=== PATIENT | female | born 1940 | race Caucasian/White ===

== ENCOUNTER → 2020-01-02 10:16 | Outpatient (CLI) | payer MEDICARE, SELFPAY ==
--- NOTE | 2020-01-02 | DI.NM.S_ITS ---
PROCEDURE: NM BONE SCAN WHOLE BODY RADIOPHARMACEUTICAL: 20.1 mCi Tc-99m MDP IV. INDICATIONS: Pain in left hip TECHNIQUE: Delayed whole-body scintigrams were obtained approximately 3-4 hours after intravenous injection of radiotracer. Anterior and posterior views were acquired from vertex to feet. Additional left and right oblique views of the pelvis and proximal femurs were obtained. COMPARISON: None. 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 There are expected postsurgical changes. No scintigraphic findings to suggest hip prostheses loosening or infection. No lesions are identified in skull, sternum, clavicles, scapulae, ribs, bony pelvis, and visualized shafts of the long bones. There is low level increased uptake in cervical, thoracic and lumbar spine with distribution indistinguishable from degenerative disc and facet disease; early metastasis to spine could be obscured by degenerative changes. There are foci of increased periarticular activity involving shoulders, wrists, hands, SI joints, knees, ankles and feet, compatible with degenerative/arthritic changes. More intense uptake in the midfoot could be secondary to trauma. IMPRESSION: 1. Bilateral hip arthroplasties. There is expected postsurgical changes. No scintigraphic findings to suggest prosthesis loosening or infection. 2. Degenerative changes in multiple peripheral joints. 3. Uptake in the left midfoot is more intense, which could be related to trauma such as healing fracture. Recommend radiographic correlation. Dictated by: Shawn Puckett M.D. on 01/02/2020 at 18:08 Approved by: Shawn Puckett M.D. on 01/02/2020 at 18:12
== END ==
PROVIDERS: PCP Family Medicine; Referring Provider Orthopaedic Surgery; Visit Provider Orthopaedic Surgery
DX: M25.552 Pain in left hip (principal); Z96.643 Presence of artificial hip joint, bilateral
CPT/HCPCS: 78306; A9503

== ENCOUNTER → 2020-10-03 09:30 | Outpatient (CLI) | payer MEDICARE, SELFPAY ==
--- NOTE | 2020-10-03 09:31 | DI.US.S_ITS ---
PROCEDURE: US PELVIC COMPLETE INDICATIONS: POST MENOPAUSAL BLEEDING TECHNIQUE: Real-time scanning was performed of the pelvic organs, with image documentation. Additional endovaginal scanning was necessary due to incomplete visualization of the adnexal and endometrial structures by transabdominal scanning. COMPARISON: [facility] Outside Film, CT, CT ABDOMEN PELVIS WITHOUT CONTRAST, 02/03/2015, 17:45. FINDINGS: Uterus: Uterus is normal in size at 3.8 x 2.3 x 3.9 cm. The endometrium measures 11 mm in combined thickness. There is an echogenic focus along the endometrial stripe that measures up to 1.5 cm. Ovaries: The right ovary is not seen. The left ovary is potentially seen measuring 13 x 18 x 7 mm. No adnexal masses are seen on either side. Other: No pathologic free abdominal or pelvic fluid. IMPRESSION: Abnormally thickened endometrial stripe, with a potential mass versus polyp also seen along the endometrial stripe. Concern is raised for endometrial neoplasm. Recommend correlation with endometrial histology, as clinically appropriate. Dictated by: Will Shannon M.D. on 10/03/2020 at 10:33 Approved by: Will Shannon M.D. on 10/03/2020 at 10:42
== END ==
PROVIDERS: PCP Internal Medicine; Referring Provider Specialist; Visit Provider Specialist
DX: N95.0 Postmenopausal bleeding (principal); R93.89 Abnormal findings on diagnostic imaging of other specified body structures
CPT/HCPCS: 76830; 76856

== ENCOUNTER → 2020-11-06 09:46 | Outpatient (CLI) | payer MEDICARE, SELFPAY ==
[2020-11-06 10:49] LABS: COVID19 -Nasal RAPID Negative (Negative)
== END ==
PROVIDERS: PCP Internal Medicine; Visit Provider Specialist
DX: Z01.812 Encounter for preprocedural laboratory examination (principal); Z20.822 Contact with and (suspected) exposure to COVID-19
CPT/HCPCS: 87635

== ENCOUNTER 2020-11-07 09:22 | Day surgery (SDC) | payer MEDICARE, SELFPAY ==
[2020-10-31 14:57] VITALS: BMI 26.1
[2020-11-07] VITALS (8 sets, daily range): BP systolic 128–173; BP diastolic 71–88; PULSE 51–59; RESP 12–18; TEMP 36.1–36.6; O2SAT 95–99; BMI 26.1
--- NOTE | 2020-11-07 | PATH_ITS ---
[facility] Accession Number: [id number] . 01 Material submitted: . PART A: endocervix - ENDOCERVICAL CURETTINGS PART B: endometrium - ENDOMETRIAL CURETTINGS . 02 Diagnosis: A. Endocervical Curettings: Metaplastic squamous mucosa with reactive features; negative for squamous dysplasia or malignancy. Endocervical tissue fragments; negative for glandular dysplasia or malignancy. Scant, detached fragments of atypical glandular epithelium, morphologically similar to the endometrial adenocarcinoma present in part B. . B. Endometrial Curettings: Endometrial adenocarcinoma, endometrioid pattern. FIGO grade 1 (of 3). [facility] 11/11/2020 1714 Local . 02 Comment: As part of routine supplier quality, this case was also reviewed by Dr. Urbina, who agrees with the interpretation. . Results discussed with Dr. Jose Chinchilla [place], on 11-11-20 at approximately 4:58 p.m. . 02 Electronically signed: . Natalie Gilmore MD, Pathologist NPI- [id number] . 01 Gross description: . A. The specimen is received in formalin, labeled endocervical curettings, and consists of multiple burton-pink fragments of soft tissue admixed with mucus and clotted blood measuring 2.5 x 2.0 x 0.4 cm in aggregate. The specimen is filtered and entirely submitted in cassette A1. B. The specimen is received in formalin, labeled endometrial curettings, and consists of multiple burton-pink fragments of soft tissue measuring 2.0 x 1.0 x 0.3 cm in aggregate. The specimen is filtered and entirely submitted in cassette B1. ([id number]) /FRR 11/08/2020 1403 Local . 02 Pathologist provided ICD-10: C54.1, N95.0 . 02 CPT . 722130, 211403 Performed at: 01 [facility] [address] [address], [place], [place] [id number] MD Fernando Mane MD Phone: [phone] Performed at: [id number] [place], [place] [id number] MD Lois Urbina MD Phone: [phone]
--- NOTE | 2020-11-07 09:15 | SUR.PREOP ---
pt has not yet arrived and will attempt to call her.
--- NOTE | 2020-11-07 09:18 | SUR.PREOP ---
Attempted to call x 2 and no answer.
[2020-11-07] MEDS: LACTATED RINGERS 1,000 ML 42 ML IV (09:32)
--- NOTE | 2020-11-07 09:59 | PM.PREOP ---
Pre-operative Note COVID-19 COVID-19 status: Negative Result date/Date tested (Pos, Neg/Pending): 11/06/20 Interval Note History & Physical reviewed/Exam performed by Physician: Yes Changes to H&P: No
--- NOTE | 2020-11-07 10:28 | SUR.OPER ---
Lithotomy on padded OR bed, head on pillow, arms secured on padded arm boards at <90 degrees abduction. Legs secured in padded yellow fins stirrups.
--- NOTE | 2020-11-07 10:49 | PM.OP.1 ---
Operative Date/Time/Diagnoses Date of procedure: 11/07/20 Time of procedure: 10:49 Pre-op diagnosis: Thickened endometrium on ultrasound with postmenopausal bleeding Post-op diagnosis: same Procedure & Clinicians Procedure: Hysteroscopy with fractional D&C Same procedure as scheduled: Yes Indications: Postmenopausal bleeding and thickened endometrium on ultrasound Surgeon: Marielle Leon Click Yes if Unassisted: Yes Anesthesia Type: General Operative Notes Findings: Approximately 3/4 of the endometrium covered with fluffy tissue consistent with carcinoma Closure Type: not applicable Specimen(s): other (Fractional D and C) Estimated Blood Loss (mL): 2 Procedure in detail: The patient was brought to the operating room where she underwent general anesthesia. She was placed in low stirrups She was prepped and draped in usual sterile fashion with pulsatile stockings in place and functional, warming in place. Her bladder was drained with in and out catheter. A single-tooth tenaculum was placed on the anterior lip of the cervix and the uterus dilated to #8 Hegar dilator. The hysteroscope was placed into the uterus with a sorbitol solution running and under constant suction. The endocervical curettage was performed. A endometrial curettage was performed. The endocervical curettage and the endometrial curettage was sent to pathology separately. The patient went to recovery room in good condition counts of instruments and sponges were correct. There was less than 300 cc of fluid used throughout the case. Complications: none Post-operative Condition: stable Disposition: same day surgery Plan for aftercare: Treatment and follow-up based on biopsy results.
--- NOTE | 2020-11-07 10:58 | SUR.PHASEI ---
1044-peripad minimum serosanguinous drainage
[2020-11-07] MEDS: ACETAMINOPHEN 325 MG TABLET 650 MG PO (11:20)
--- NOTE | 2020-11-07 11:40 | SUR.PHASEII ---
Called pt's ride and he is not answering. Pt was told she has probable cancer by Dr. Leon. pt is talking and waiting on to call back. RN has attempted to call x [address] Leon. tried once.
--- NOTE | 2020-11-07 12:14 | SUR.PHASEII ---
pt awaiting to arrive. Pt awaiting tylenol to kick in . Pt sitting on stretcher reading. No complaints voiced. pt had drink and snack.
--- NOTE | 2020-11-07 12:18 | SUR.PHASEII ---
pt's has arrived and pt getting dressed and will discharge her with her . Pt denies nausea and dizziness.
== END 2020-11-07 12:26 | disposition home or self-care (01) ==
PROVIDERS: PCP Internal Medicine; Referring Provider Specialist; Visit Provider Specialist
PROC: 0UDB8ZZ Extraction of Endometrium, Via Natural or Artificial Opening Endoscopic (ICD-10-PCS; CPT 58558; principal; 2020-11-07 10:15)
DX: C54.1 Malignant neoplasm of endometrium (principal)
CPT/HCPCS: 58558; J2405; J2704; J3010

== ENCOUNTER → 2020-12-13 10:17 | Outpatient (CLI) | payer MEDICARE, SELFPAY ==
[2020-12-13 12:01] LABS: COVID-19 CEPHEID PCR (VTM/NP) Negative (Negative)
== END ==
PROVIDERS: PCP Internal Medicine; Referring Provider Physician Assistant; Visit Provider Physician Assistant
DX: Z20.822 Contact with and (suspected) exposure to COVID-19 (principal)
CPT/HCPCS: C9803; U0003

== ENCOUNTER → 2023-05-31 12:02 | Outpatient (CLI) | payer MEDICARE, SELFPAY ==
--- NOTE | 2023-05-31 12:04 | DI.MRI.S_ITS ---
PROCEDURE: MR ANGIO HEAD WO CON INDICATIONS: family hx of ischemic disease TECHNIQUE: Noncontrast axial 3-D [id number] MR angiogram, with 3-dimensional maximum intensity projection (MIP) reformats of the internal carotid arteries and posterior circulation then performed. COMPARISON: None. FINDINGS: Image quality: Excellent. Anterior circulation: Intracranial internal carotid arteries demonstrate normal size and intraluminal flow signal. The flow within the paired anterior cerebral arteries is normal and symmetric. The flow within the middle cerebral arteries is normal and symmetric. The anterior communicating artery is seen. No stenoses, occlusions, or aneurysms. Posterior circulation: Visualized portions of the vertebral arteries demonstrate normal caliber, and join to form a normal appearing basilar artery. The flow within the posterior cerebral arteries is normal and symmetric. No stenoses, occlusions, or aneurysms. IMPRESSION: No hemodynamically significant stenosis, large vessel occlusion, aneurysm or AVM. Dictated by: Chet Rosenberg M.D. on 05/31/2023 at 14:26 Approved by: Chet Rosenberg M.D. on 05/31/2023 at 14:29
--- NOTE | 2023-05-31 12:06 | DI.MRI.S_ITS ---
PROCEDURE: MR HEAD/BRAIN WO CON INDICATIONS: family history of ischemic disease TECHNIQUE: Non-contrast axial T1 spin echo, axial T2 fast spin echo, sagittal and axial FLAIR, coronal T2 fast spin echo, axial gradient echo, axial diffusion and ADC through the brain. COMPARISON: None. FINDINGS: Image quality: Artifact limits evaluation of the lower cerebellum and brainstem. CSF spaces: Ventricles appear symmetric in size and shape. Basal cisterns are patent. No extra-axial fluid collections. Brain: Extra-axial dural-based lesions with associated calcification measuring 7 x 5 mm involving the right parietal bone and there is a 2nd lesion more inferiorly measuring 9 x 3 mm. No intracranial bleeds or mass effects. There is cerebral volume loss for age. There are periventricular and deep white matter chronic small vessel ischemic changes. Brainstem appears normal. Diffusion-weighted images show no acute infarct. No chronic ischemic insults. Normal intravascular flow voids are present. Skull and face: Calvarial bone marrow is normal in signal. Orbits are normal. Left lens replacement. Sinuses: Sinuses and mastoids are clear. IMPRESSION: Mild age-related global volume loss and chronic microvascular ischemic changes. No acute intracranial abnormalities. 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 If indicated, MRI brain with and without contrast can be obtained for further evaluation. Dictated by: Chet Rosenberg M.D. on 05/31/2023 at 14:20 Approved by: Chet Rosenberg M.D. on 05/31/2023 at 14:24
== END ==
PROVIDERS: Referring Provider Internal Medicine; Visit Provider Internal Medicine
DX: G93.9 Disorder of brain, unspecified; Z82.49 Family history of ischemic heart disease and other diseases of the circulatory system
CPT/HCPCS: 70544; 70551